=== PATIENT | male | born 1980 | race Caucasian/White ===

== ENCOUNTER → 2022-01-03 10:26 | Outpatient (CLI) | payer OTHER, SELFPAY ==
--- NOTE | ~2022-01-03 | XR_ITS ---
EXAMINATION: XR knee RT 2V DATE: 01/03/2022 10:38 INDICATION: Right knee pain. TECHNIQUE: 2 views of right knee were obtained. COMPARISON: None. FINDINGS: Bone alignment is normal. No fracture. Joint spaces are well maintained. There is no knee j oint effusion. IMPRESSION: 1. Normal right knee. Reviewed, dictated and finalized at location A. IMPRESSION: 1. Normal right knee.
== END ==
PROVIDERS: PCP Emergency Medicine; Visit Provider Emergency Medicine
DX: M25.561 Pain in right knee (principal)
CPT/HCPCS: 73560

== ENCOUNTER → 2022-02-11 07:05 | Outpatient (CLI) | payer OTHER, SELFPAY ==
--- NOTE | ~2022-02-11 | MR_ITS ---
EXAMINATION: MR knee RT wo con DATE: 02/11/2022 07:40 INDICATION: Right knee pain TECHNIQUE: Magnetic resonance imaging (MRI) of the right knee was performed without intravenous contr ast. Sequences included coronal PD-weighted FSE, coronal PD-weighted FS FSE, sagittal T2-weighted FS E, sagittal PD-weighted FS FSE and axial PD weighted fat saturated FSE. COMPARISON: None. FINDINGS: Medial compartment: Complex tear of the body and posterior horn of the medial meniscus which extends from the free edge t o the periphery and involves both the superior and inferior articular surfaces. Articular cartilage i s normal. Lateral compartment: Lateral meniscus is normal. Articular cartilage is normal. Patellofemoral compartment: Articular cartilage is normal. Ligaments and tendons: Anterior and posterior cruciate ligaments are normal. The medial collateral ligament and fibular noah ateral ligament complex are normal. The extensor mechanism is normal. The visualized medial and later al hamstring tendons as well as the iliotibial band are normal. Fluid: Physiologic amount of fluid in the joint space. No loose osteochondral bodies identified. Osseous/other: Normal marrow signal. No fracture or pathologic marrow replacing process. IMPRESSION: 1. Complex medial meniscal tear. Otherwise normal right knee MRI. Reviewed, dictated and finalized at location A.
== END ==
PROVIDERS: PCP Emergency Medicine; Visit Provider Emergency Medicine
DX: S83.231A Complex tear of medial meniscus, current injury, right knee, initial encounter (principal); X58.XXXA Exposure to other specified factors, initial encounter
CPT/HCPCS: 73721

== ENCOUNTER 2022-05-09 01:07 | Day surgery (SDC) | payer OTHER, SELFPAY ==
[2022-04-30 13:26] VITALS: BMI 26.4
--- NOTE | 2022-04-30 13:30 | PC.NURSE ---
Report to the Outpatient Waiting Room, entrance under the green pavilion located off [address], at time 0600 on date 05/09/22. Planned Procedure Time: 0730. Time changes happen often and if your time is changed the preop area will call you the afternoon before. - You and your visitor will be asked to self-screen and do not enter if you have any COVID symptoms. - Only one visitor is requested with a max of two and NO children visitors are allowed at this time. - The patient visitor may be requested to leave or wait in car when not with patient due to distancing restrictions. - A mask is REQUIRED within the hospital. Patients may have clear liquids (water, carbonated beverages, clear teas, apple juice) until 3 hours prior to surgery with a maximum of 20 ounces. - No food from midnight until time of surgery Take the following medications with a SIP of water the morning of surgery: NONE Medications to discontinue per physician: VITAMINS Date to take last dose: 05/05/22 Please no make-up, nail occitan, hairspray, perfume, deodorant, or body powder the day of surgery. No jewelry (including any body piercings) or valuables the day of surgery, leave them at home. Please take a shower or bath the night before, or the morning of, surgery with an antibacterial soap. Wear comfortable, loose fitting clothing. - Jewelry must be removed prior to entering the operating room. Rings and piercings that are not removed may be cut off. - The hospital will not accept responsibility for valuables. - Please leave all valuables, including medications, at home the day of surgery. If you are going home after surgery, a licensed entry level truck driver must drive you home. - NO public transportation without another adult if you receive anesthesia. - We recommend that an adult stay with you for 24 hours following discharge. - We also recommend that you do not drive, make important decision, drink alcoholic beverages, or take any drugs that were not prescribed by your health care provider for at least 24 hours after your discharge time. Follow any additional instructions given to you from your surgeon. If you or anyone in your household have experienced Covid symptoms in the past week, please notify your surgeon or the nurse liaison at the phone number below for possible testing. Telephone instructions given to PT - ISAC RAMIREZ and asked if any additional questions and then verbalized understanding. Patient advised to call surgeon office or pre surgery nurse liaison [phone] if any additional questions.
--- NOTE | 2022-05-08 09:16 | P.PNAN_ITS ---
Anes - Initial Pre Proc Eval Procedure: Operation Date: 05/09/22 07:30 Proposed Procedures p Right Knee Arthroscopy - Brennan Conway MD Date/Time: 05/08/22 09:16 Surgeon: Brennan Conway MD Pre Op Diagnosis: right knee medial meniscus tear Patient Data Age: 42 Gender: M Height: 1.85 m Weight: 90.72 kg Allergies Allergy/AdvReac Type Severity Reaction Status Date / Time latex Allergy Intermediate Rash Verified 05/05/22 15:37 Home Medications Medication Instructions Recorded Confirmed Type multivitamin 1 tablet PO DAILY 03/20/21 05/09/22 History omega-3 fatty acids See Rx Instructions PO DAILY 03/20/21 05/09/22 History cetirizine 10 mg tablet (Zyrtec) 10 mg PO DAILY 04/30/22 05/09/22 History hydrocodone 5 mg-acetaminophen 325 1 tablet PO Q12H PRN pain #20 tabs 05/09/22 Rx mg tablet Patient hx anesthesia problems: none Family hx anesthesia problems: none Results Review: All pre-operative results and documents have been reviewed as part of the pre-operative evaluation. [facility] [place] Past Medical History Medical History Chicken pox Medial meniscus tear Surgical History Surgical History History of tonsillectomy S/P excision of lipoma (~2014) 2013 Family History Family History Father No problems noted. Mother No problems noted. Other Asthma Social History Social History Social History: Patient drinks 2-3 cups of coffee daily Smoking status: Never smoker Alcohol intake: current Drinks per week: 10 Alcohol use details: Patient drinks 5-10 alcoholic drinks per week. 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[employer] Gender identity (if verbalized by the patient): Male Sexual Orientation (if Verbalized by the Patient): Straight or Heterosexual Spiritual care concerns: No Anes - Eval Final PreProcedure Day of Procedure 05/08/22 09:16 Patient weight: overweight Heart: regular rate and rhythm Lungs: clear to auscultation Airway: Mallampati scale class II Neurological: alert and oriented Last oral intake: >/= 8 hours ASA classification: II Emergent: no Anesthetic plan: proceed Anesthesia type and monitoring: general LMA and standard monitoring Results Review: All pre-operative results and documents have been reviewed as part of the pre- operative evaluation. Informed Consent: The patient's anesthetic plan and its attendant risks and benefits were discussed with the patient/family/POA. Questions were solicited and answers provided to the satisfaction of the patient/family/POA.
[2022-05-09] VITALS (10 sets, daily range): BP systolic 110–134; BP diastolic 68–81; PULSE 49–79; RESP 13–20; TEMP 36.2–36.7; O2SAT 100
[2022-05-09] MEDS: CELECOXIB 200 MG CAPSULE PO (07:00)
[2022-05-09] MEDS: ACETAMINOPHEN 500 MG TABLET 1000 MG PO (07:00)
[2022-05-09] MEDS: LACTATED RINGERS 1,000 ML 30 ML IV CONT (07:05)
--- NOTE | 2022-05-09 07:06 | P.PNAN_ITS ---
Anes - Initial Pre Proc Eval Procedure: Operation Date: 05/09/22 07:30 Proposed Procedures p Right Knee Arthroscopy - Brennan Conway MD Date/Time: 05/09/22 07:06 Surgeon: Brennan Conway MD Pre Op Diagnosis: right knee medial meniscus tear Patient Data Age: 42 Gender: M Height: 1.85 m Weight: 90.72 kg Allergies Allergy/AdvReac Type Severity Reaction Status Date / Time latex Allergy Intermediate Rash Verified 05/05/22 15:37 Home Medications Medication Instructions Recorded Confirmed Type multivitamin 1 tablet PO DAILY 03/20/21 05/05/22 History omega-3 fatty acids See Rx Instructions PO DAILY 03/20/21 05/05/22 History cetirizine 10 mg tablet (Zyrtec) 10 mg PO DAILY 04/30/22 05/05/22 History chlorhexidine gluconate 4 % 1 applic topical ONCE #237 mL 05/02/22 05/05/22 Rx topical liquid (Hibiclens) Patient hx anesthesia problems: none Family hx anesthesia problems: none Results Review: All pre-operative results and documents have been reviewed as part of the pre- operative evaluation. [facility] Past Medical History Medical History Chicken pox Medial meniscus tear Surgical History Surgical History History of tonsillectomy S/P excision of lipoma (~2014) 2013 Family History Family History Father No problems noted. Mother No problems noted. Other Asthma Social History Social History Social History: Patient drinks 2-3 cups of coffee daily Smoking status: Never smoker Alcohol intake: current Drinks per week: 10 Alcohol use details: Patient drinks 5-10 alcoholic drinks per week. 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[employer] Gender identity (if verbalized by the patient): Male Sexual Orientation (if Verbalized by the Patient): Straight or Heterosexual Spiritual care concerns: No Anes - Eval Final PreProcedure Day of Procedure 05/09/22 07:06 Patient weight: overweight Heart: regular rate and rhythm Lungs: clear to auscultation Airway: Mallampati scale class II Neurological: alert and oriented Last oral intake: >/= 8 hours ASA classification: II Emergent: no Anesthetic plan: proceed Anesthesia type and monitoring: general and standard monitoring Results Review: All pre-operative results and documents have been reviewed as part of the pre- operative evaluation. Informed Consent: The patient's anesthetic plan and its attendant risks and benefits were discussed with the patient/family/POA. Questions were solicited and answers provided to the satisfaction of the patient/family/POA.
--- NOTE | 2022-05-09 07:24 | WPDHPUPDATE1 ---
History and Physical Update Update Date/Time: 05/09/22 07:24 History and Physical has been reviewed, including an updated exam of the patient. There are NO changes in the patient's condition. Risks, benefits, and alternatives have been discussed and questions answered. Patient agrees to proceed with procedure.
[2022-05-09] MEDS: ceFAZolin 2 GM/D5W 50 ML 2 GM/50 ML BAG IVPB (07:33)
--- NOTE | 2022-05-09 07:41 | W.PM.PROC2 ---
Procedure Note - Detailed Date of Procedure 05/09/22 Pre-op Diagnosis right knee medial meniscus tear Post-op Diagnosis Same Procedure Performed RIGHT KNEE SCOPE Surgeon Brennan Conway MD Anesthesia General Description of Procedure PATIENT WAS TAKEN TO THE OR. RIGHT LEG WAS PREPPED AND DRAPED STERILE. TROCARS WERE PLACED IN THE USUAL FASHION. CAMERA WAS INTRODUCED. THERE WAS MILD SYNOVITIS IN ALL COMPARTMENTS. THE MEDIAL COMPARTMENT SHOWED MINIMAL CHONDROMALACIA TO THE MEDIAL FEMORAL CONDYLE. A SHAVER WAS USED TO PREFORM A CHONDROPLASTY. THERE WAS A COMPLEX MEDIAL MENISCUS TEAR WITH A LARGE RADIAL FLAP. THE TEAR WAS RESECTED WITH A BITER AND A SHAVER DOWN TO A SMOOTH BASE. THE ACL WAS INTACT. THERE WAS NO TEAR TO THE LATERAL MENISCUS. THE LATERAL COMPARTMENT HAD NO CHONDROMALACIA. CHONDROPLASTY WAS PREFORMED. THE PATELLO FEMORAL JOINT HAD MINIMAL CHONDROMALACIA. SYNOVECTOMY WAS PREFORMED IN THE SUPERIOR MEDIAL COMPARTMENT. THE WOUNDS WERE APPROXIMATED WITH 4.0 NYLON. STERILE DRESSING WAS APPLIED. PATIENT WAS EXTUBATED. Estimated Blood Loss 5 Complications No immediate complications Condition Stable Disposition PACU
[2022-05-09] MEDS: BUPIVACAINE HCL 0.5% PF 30 ML VIAL INFILTRATE (08:02)
[2022-05-09] MEDS: fentaNYL CITRATE INJ (*CRX) 100 MCG/2 ML VIAL 25 MCG IV PUSH ×2 (09:22→09:26)
[2022-05-09] MEDS: oxyCODONE HCL (*CRX) 5 MG TAB IR PO (09:56)
== END 2022-05-09 11:00 | disposition home or self-care (01) ==
PROVIDERS: PCP Emergency Medicine; Visit Provider Orthopaedic Surgery
PROC: (CPT 29870; principal; 2022-05-09 07:30)
DX: M23.331 Other meniscus derangements, other medial meniscus, right knee (principal); M65.861 Other synovitis and tenosynovitis, right lower leg; M22.41 Chondromalacia patellae, right knee
CPT/HCPCS: 29881; A9270; J0690; J1100; J2250; J2405; J2704; J3010; J7120

== ENCOUNTER 2024-06-24 13:13 | Emergency (ER) | payer OTHER, SELFPAY ==
[2024-06-24 13:26] VITALS: BP 143/87; PULSE 90; RESP 16; TEMP 36.6; O2SAT 100
--- NOTE | 2024-06-24 13:40 | ED_ITS ---
HPI - Animal Bite General Chief Complaint: Animal Bite Stated Complaint: DOG BITE Source: patient Mode of arrival: ambulatory Limitations: no limitations History of Present Illness HPI narrative: 44-year-old male presented for complaint of dog bite to the left hand sustained yesterday. 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 He washed the area with soap and water and cleansed it with Hibiclens immediately following the bite. Patient has kept the site covered. Endorses more redness and some swelling to the site. The dog is up-to-date on vaccinations. Patient has had tetanus shot within the last 5 years. Denies numbness, tingling, weakness of the hand or fingers. Related Data Home Medications ?Medication ?Instructions ?Recorded ?Confirmed ?Last Taken ?Type multivitamin 1 tablet PO DAILY 03/20/21 06/24/24 05/03/22 History omega-3 fatty acids See Rx Instructions PO DAILY 03/20/21 06/24/24 05/03/22 History cetirizine 10 mg tablet (Zyrtec) 10 mg PO DAILY 04/30/22 06/24/24 05/04/22 History Allergies Allergy/AdvReac Type Severity Reaction Status Date / Time latex Allergy Intermediate Rash Verified 06/24/24 13:22 Review of Systems 2 Review of Systems: CONSTITUTIONAL: Denies body aches, fever, chills, or sweats. EYES: Denies visual changes, redness, or discharge. ENT: Denies rhinorrhea, congestion CARDIOVASCULAR: Denies chest pain, palpitations, or edema. RESPIRATORY: Denies cough or dyspnea. GASTROINTESTINAL: Denies abdominal pain, nausea, vomiting, or diarrhea. SKIN: reports laceration/dog bite left hand MUSCULOSKELETAL: Denies back pain, joint pain, or myalgia. NEUROLOGIC: Denies headache, numbness, tingling, or weakness. [facility] Past Medical History Medical History Medial meniscus tear Chicken pox Surgical History Surgical History History of tonsillectomy S/P excision of lipoma (~2014) 2013 Family History Family History Father No problems noted. Mother No problems noted. Other Asthma Social History Social History Social History: Patient drinks 2-3 cups of coffee daily Smoking status: Never smoker Alcohol intake: current Drinks per week: 10 Alcohol use details: Patient drinks 5-10 alcoholic drinks per week. 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 Please see nursing chart for further information. There is no relevant family history pertinent to the presenting complaint Exam 2 Narrative: GENERAL: Well-appearing HEAD: Normocephalic, atraumatic. EYES: conjunctivae clear, and EOMI. ENT: Mucous membranes moist. Oropharynx without edema, erythema or lesions. NECK: Supple. No lymphadenopathy CHEST: Clear to auscultation. HEART: Regular rate and rhythm. SKIN: Warm, dry. Left palmar area cm irregular laceration dog bite. Mild surrounding swelling and erythema. Scant amount of serous drainage. NEURO: Alert and oriented x3. Extrem: Hand/finger images: 1. area of laceration Course Course Emergency Course: Patient is aware of diagnosis, understands and agrees to treatment plan. Anticipatory guidance given. Patient agrees to follow-up as directed and is aware of reasons to seek care at the emergency department. Portions of this record may have been created with voice recognition software Level of Care: Express Care Visit Vital Signs Vital signs: Vital Signs Temperature 98 F 06/24/24 13:26 Pulse Rate 90 06/24/24 13:26 Respiratory Rate 16 06/24/24 13:26 Blood Pressure 143/87 H 06/24/24 13:26 Pulse Oximetry 100 06/24/24 13:26 Temperature 98 F 06/24/24 13:26 Pulse Rate 90 06/24/24 13:26 Respiratory Rate 16 06/24/24 13:26 Blood Pressure 143/87 H 06/24/24 13:26 Pulse Oximetry 100 06/24/24 13:26 Reviewed MDM - Animal Bite MDM Narrative Medical decision making narrative: Discussed physical exam findings, the redness was outlined, wound cleansed. dressing applied. he is advised at length on signs and symptoms to go to the ER. Advised supportive measures. Reviewed prescriptions Pt is appropriate for outpt treatment and f/u. Differential Diagnosis Differential diagnosis: Likely bite by animal, dog bite and rabies contact Discharge Plan Discharge Clinical Impression: Dog bite Patient Disposition: Home, Self-Care Condition: Stable Instructions: Antibiotic Form, Animal Bite (ED) Additional Instructions: Keep the area clean and dry - cleanse with warm water and mild soap and allow to fully dry. Ok to apply neosporin to the site Keep it covered if draining, change the dressing daily Take antibiotic as directed Watch for worsening symptoms including pain, redness, swelling, streaking, pus/drainage, fever. Go to the ER immediately with any of these symptoms or concerns. Follow up with primary care provider Patient Language: Polish Prescriptions: New amoxicillin-pot clavulanate 875-125 mg tablet 1 tablet PO Q12H 7 Days Qty: 14 0RF No Action multivitamin Tablet 1 tablet PO DAILY omega-3 fatty acids Capsule See Rx Instructions PO DAILY Rx Instructions: Take 1 tablet PO daily; cetirizine [Zyrtec] 10 mg Tablet 10 mg PO DAILY Follow-up/Referrals: Jean Paul Andrews MD [Primary Care Provider] - Time of Disposition: 13:48
== END 2024-06-24 13:54 | disposition home or self-care (01) ==
PROVIDERS: Emergency Provider Nurse Practitioner Family; PCP Emergency Medicine
DX: S61.452A Open bite of left hand, initial encounter (principal); W54.0XXA Bitten by dog, initial encounter
CPT/HCPCS: 99213; G0463